=== PATIENT | male | born 1970 | race Hispanic/Latino ===

== ENCOUNTER 2018-06-29 17:02 | Inpatient (IN) | payer MEDICAID, OTHER ==
[2018-06-29 17:24] VITALS: BMI 45.1
[2018-06-29] MEDS ORDERED: Albuterol 0.083% Inhal Sol (2.5 mg/3 mL) UD IH STA (18:22)
--- NOTE | 2018-06-29 18:45 | ED PDOC ---
Arrival/HPI - General Chief Complaint: Flu-like Symptoms Time Seen by Provider: 06/29/18 17:06 Historian: Patient - History of Present Illness Narrative History of Present Illness (Text): 06/29/18 18:36 47yr old male presents today with 4 day history of cough, nasal congestion, sore throat, bodyaches and fevers. pt c/o a mostly dry cough with occasional mucus production. pt c/o rib pain and back pain only with coughing. no cp or sob. pt denies dizziness or weakness. no vomiting or diarrhea. c/o subjective fevers. no abdominal pain. no other complaints. no sick contacts. pt states he thinks he has the flu. Time/Duration: Other ( 4 days) Symptom Onset: Gradual Symptom Course: Worsening Quality: Aching Severity Level: 4 Past Medical History - Provider Review Nursing Documentation Reviewed: Yes - Travel History Have you recently traveled outside [place] w/in the past 3 mons?: No - Infectious Disease Hx of Infectious Diseases: None - Tetanus Immunization Tetanus Immunization: Unknown - Past Medical History Past Medical History: No Previous - Psychiatric Hx Depression: No Hx Emotional Abuse: No Hx Physical Abuse: No Hx Substance Use: No - Past Surgical History Past Surgical History: No Previous - Suicidal Assessment Feels Threatened In Home Enviroment: No Family/Social History - Physician Review Nursing Documentation Reviewed: Yes Family/Social History: Unknown Family HX Smoking Status: Never Smoked Hx Alcohol Use: Yes Frequency of alcohol use: Socially Hx Substance Use: No Hx Substance Use Treatment: No Allergies/Home Meds Allergies/Adverse Reactions: Allergies No Known Allergies Allergy (Verified 10/02/14 12:29) Home Medications: Home Meds Medication Instructions Recorded Confirmed No Known Home Med 10/02/14 10/02/14 Review of Systems - Review of Systems Constitutional: Fatigue, Fevers ENT: Sore Throat, Sinus Congestion Respiratory: Cough. absent: SOB Cardiovascular: absent: Chest Pain, Palpitations Gastrointestinal: absent: Abdominal Pain, Diarrhea, Nausea, Vomiting Genitourinary Male: absent: Dysuria, Frequency, Hematuria Musculoskeletal: Back Pain Skin: absent: Rash, Pruritis Neurological: Headache. absent: Dizziness Psychiatric: absent: Suicidal Ideation Physical Exam Vital Signs Reviewed: Yes Vital Signs Temp Pulse Resp BP Pulse Ox 06/29/18 17:02 98.4 F 86 22 151/106 H 95 Temperature: Afebrile Blood Pressure: Hypertensive Pulse: Regular Respiratory Rate: Normal Appearance: Positive for: Well-Appearing, Non-Toxic, Comfortable Pain Distress: None Mental Status: Positive for: Alert and Oriented X 3 - Systems Exam Head: Present: Atraumatic Pupils: Present: PERRL Extroacular Muscles: Present: EOMI Conjunctiva: Present: Normal Ears: Present: Normal, NORMAL TM Mouth: Present: Moist Mucous Membranes. No: Drooling, Trismus Pharnyx: Present: Normal. No: ERYTHEMA, EXUDATE, TONSILS ENLARGED Nose (External): Present: Atraumatic Nose (Internal): Present: Normal Inspection Neck: Present: Normal Range of Motion, Trachea Midline Respiratory/Chest: Present: Clear to Auscultation, Good Air Exchange, Rhonchi. No: Respiratory Distress, Accessory Muscle Use, Wheezes Cardiovascular: Present: Regular Rate and Rhythm Abdomen: No: Tenderness, Rebound, Guarding Neurological: Present: GCS=15 Skin: Present: Warm, Dry, Normal Color. No: Rashes Psychiatric: Present: Alert, Oriented x 3 Medical Decision Making ED Course and Treatment: 06/29/18 18:47 47yr old male with 4 day history of flu like symptoms. cbc: wnl cmp: glucose; 300 BNP: wnl cxr: + right lower lobe infiltrate. EKG: sinus rhythm with PAC at 86b/m no st elevations. normal axis. rapid flu: negative pt reassessment; after albuterol pt feeling slightly better; still hypoxic at 91% on room air. duoneb added. blood cultures pending. pt started on Rocephin and zithromax IV. pt reassessment: pt feeling better; remains slightly hypoxic at 90% on room air; placed on 2L nasal canula. discussed all results with patient in depth; case discussed with dr. casillas; accepts observational status admission to med/surg for PNA with new onset diabetes all aspects of this case were discussed the attending of record. impression: pneumonia, hypoxia, hyperglycemia admit observational status to med/surg Reassessment Condition: Re-examined, Improving,but remains with symptoms - RAD Interpretation Radiology Orders: 06/29/18 18:21 CHEST PORTABLE [RAD] Stat - Medication Orders Current Medication Orders: Discontinued Medications Acetaminophen (Tylenol 325mg Tab) 975 mg PO STAT STA Stop: 06/29/18 18:24 Albuterol Sulfate (Albuterol 0.083% Inhal [place] (2.5 Mg/3 Ml) Ud) 2.5 mg IH STAT STA Stop: 06/29/18 18:23 Disposition/Present on Arrival - Present on Arrival Any Indicators Present on Arrival: No History of DVT/PE: No History of Uncontrolled Diabetes: No Urinary Catheter: No History of Decub. Ulcer: No History Surgical Site Infection Following: None - Disposition Have Diagnosis and Disposition been Completed?: Yes Diagnosis: Pneumonia, Hyperglycemia Disposition: HOSPITALIZED Disposition Time: 19:50 Patient Plan: Observation Condition: FAIR Referrals: PCP,NO [Primary Care Provider] - Follow up with primary Forms: [employer] [facility] (Portuguese)
[2018-06-29 19:09] LABS: BASO # 0.03 K/mm3 (0.0-2.0); BASO % 0.4 % (0.0-3.0); EOS # 0.2 (0.0-0.7); EOS % 2.2 % (1.5-5.0); GRAN # 4.35 (1.4-6.5); GRAN % 60.9 % (50.0-68.0); HEMOGLOBIN 17.1 g/dL (14.0-18.0); LYMPH # 1.9 (1.2-3.4); LYMPH % 27.1 % (22.0-35.0); MEAN CELL VOLUME 95.1 fl (80.0-105.0); MEAN CORPUSCULAR HEMOGLOBIN 31.3 pg (25.0-35.0); MEAN CORPUSCULAR HGB CONC 32.9 g/dl (31.0-37.0); MEAN PLATELET VOLUME 10.9 fl (7.0-11.0); MONO # 0.7 (0.1-0.6); MONO % 9.4 % (1.0-6.0); RBC 5.47 10^6/uL (3.5-6.1); RED CELL DISTRIBUTION WIDTH 13.2 % (11.5-14.5); WHITE BLOOD COUNT 7.2 10^3/uL (4.5-11.0)
[2018-06-29 19:22] LABS: ALB/GLOB RATIO 1.2 (1.1-1.8); ALT/SGPT 81 U/L (7-56); AST/SGOT 46 U/L (17-59); BLOOD UREA NITROGEN 12 mg/dL (7-21); CALCIUM 9.2 mg/dL (8.4-10.5); GFR NON-AFRICAN AMERICAN > 60
[2018-06-29 19:24] LABS: B-TYPE NATRIURETIC PEPTIDE 411 pg/mL (0-450)
[2018-06-29] MEDS ORDERED: Albuterol-Ipratrop 3 mg / 0.5 (3 ml) UD IH STA (19:26)
[2018-06-29] MEDS ORDERED: cefTRIAXone 1 gm 1 GM/100 ML BAG IVPB STA (19:49)
[2018-06-29] MEDS ORDERED: Azithromycin 500MG/NS 250ml 500 MG/250 ML BAG IVPB STA (19:49)
--- NOTE | 2018-06-29 21:30 | CP.PCM.HP ---
<Adriel Wisdom - Last Filed: 06/30/18 01:57> History of Present Illness - History of Present Illness History of Present Illness: Adriel Wisdom, PGY-1, Internal Medicine History and Physical for Dr. Aguirre 47 year old male with past medical history of gastric ulcers presents with 4 day history of generalized body aches, shortness of breath, productive cough with green sputum, chest ache while coughing, mild headache, and subjective fevers for the first 2 days of symptoms. Patient reports taking alkaseltzer, cough drops, and dextrometorphan for relief of symptoms, which did not relieve his symptoms. Patient reports shortness of breath was not exacerbated or relieved with position changes or at night time. Patient also reports snoring at night and getting inadequate sleep most nights. He was supposed to get polysomnography last year but was not able to make his appointment. He works at a restaurant in [place] and was afraid he had "flu-like symptoms" and took an uber to the hospital. Patient denies change in vision, change in hearing, heart palpitations, nausea, vomiting, diarrhea, dysuria, hematuria, numbness/tingling. 12-point ROS was negative except for what was mentioned above. PMH: as mentioned above PSH: denies FMHx: Mother: CHF, renal failure, from metastatic lung cancer/ Father: from metastatic lung cancer SHx: denies smoking, drinks 6 pack of beer in 2 months, denies recreational drug use Allergies: NKDA PMD: denies Pharmacy: [facility] Rx: Over the counter prilosec Present on Admission - Present on Admission Any Indicators Present on Admission: No Review of Systems - Constitutional Constitutional: Fever (subjective), Snoring. absent: Chills, Night Sweats - EENT Eyes: absent: Blurred Vision Ears: absent: Decreased Hearing - Cardiovascular Cardiovascular: Chest Pain (aches when coughs), Dyspnea. absent: Irregular Heart Rhythm, Pain Radiating to Arm/Neck/Jaw, Lightheadedness, Palpitations - Respiratory Respiratory: Dyspnea, Wheezing, Snoring, Excessive Mucous Production. absent: Hemoptysis, Dyspnea on Exertion - Gastrointestinal Gastrointestinal: absent: Abdominal Pain, Constipation, Diarrhea, Nausea, V omiting - Genitourinary Genitourinary: absent: Dysuria, Hematuria - Musculoskeletal Musculoskeletal: absent: Arthralgias - Neurological Neurological: Headaches. absent: Confusion, Dizziness Past Patient History - Infectious Disease Hx of Infectious Diseases: None - Tetanus Immunizations Tetanus Immunization: Unknown - Past Social History Smoking Status: Never Smoked - PSYCHIATRIC Hx Depression: No Hx Emotional Abuse: No Hx Physical Abuse: No Hx Substance Use: No Meds Allergies/Adverse Reactions: Allergies Allergy/AdvReac Type Severity Reaction Status Date / Time No Known Allergies Allergy Verified 10/02/14 12:29 Physical Exam - Constitutional Appears: Well, Non-toxic, No Acute Distress - Head Exam Head Exam: ATRAUMATIC, NORMAL INSPECTION, NORMOCEPHALIC - Eye Exam Eye Exam: EOMI Pupil Exam: PERRL - ENT Exam ENT Exam: Mucous Membranes Moist - Respiratory Exam Respiratory Exam: Wheezes (diffuse but heard more clearly at bilateral bases), NORMAL BREATHING PATTERN. absent: Accessory Muscle Use, Decreased Breath So unds, Respiratory Distress - Cardiovascular Exam Cardiovascular Exam: REGULAR RHYTHM, RRR - GI/Abdominal Exam GI & Abdominal Exam: Normal Bowel Sounds, Soft. absent: Tenderness Additional comments: obese - Extremities Exam Extremities exam: Positive for: full ROM - Neurological Exam Neurological exam: Alert, CN II-XII Intact, Oriented x3 Results - Vital Signs Recent Vital Signs: Last Vital Signs Temp 98.2 F 06/29/18 18:46 Pulse 88 06/29/18 19:47 Resp 18 06/29/18 19:47 BP 148/96 H 06/29/18 19:47 Pulse Ox 91 L 06/29/18 19:47 - Labs Result Diagrams: 06/29/18 18:55 06/29/18 18:55 Labs: Laboratory Results - last 24 hr 06/29/18 06/29/18 06/29/18 18:44 18:55 18:55 WBC 7.2 RBC 5.47 Hgb 17.1 Hct 52.0 MCV 95.1 MCH 31.3 MCHC 32.9 RDW 13.2 Plt Count 150 MPV 10.9 Gran % 60.9 Lymph % (Auto) 27.1 [place] % (Auto) 9.4 H Eos % (Auto) 2.2 Baso % (Auto) 0.4 Gran # 4.35 Lymph # (Auto) 1.9 [place] # (Auto) 0.7 H Eos # (Auto) 0.2 Baso # (Auto) 0.03 Sodium 139 Potassium 4.2 Chloride 100 Carbon Dioxide 32 Anion Gap 11 BUN 12 Creatinine 0.7 L Est GFR ( Amer) > 60 Est GFR (Non-Af Amer) > 60 Random Glucose 300 H Calcium 9.2 Total Bilirubin 0.6 AST 46 ALT 81 H Alkaline Phosphatase 94 NT-Pro-B Natriuret Pep 411 Total Protein 7.2 Albumin 4.0 Globulin 3.2 Albumin/Globulin Ratio 1.2 Influenza Typ A,B (EIA) Negative for flu a/b Assessment & Plan - Assessment and Plan (Free Text) Assessment: 47 year old male with past medical history of gastric ulcers presents with 4 day history of generalized body aches, shortness of breath, productive cough with green sputum, chest ache while coughing, mild headache, and subjective fevers for the first 2 days of symptoms. Influeza antibody was negative. CXR shows right lower lobe infiltrate Plan: Shortness of breath and productive cough 2/2 to Community Acquired Pneumonia vs. Common Cold vs. doubt Influenza -Chest X ray: right lower lobe infiltrate as read by me -Influenza negative -Legionella urine antigen, Mycoplasma IgM, blood culture, urine culture ordered -Ceftriaxone and Azithromycin day 1 of 5 -Duonebs PRN for shortness of breath Hyperglycemia -Random glucose: 300 -No diagnosis of diabetes in the past -Accucheks ACHS -HgbA1c ordered -Low dose SSI Isolated Elevated ALT -Continue to monitor GI prophylaxis: protonix 40 mg daily DVT prophylaxis: lovenox 40 mg daily - Date & Time Date: 06/30/18 Time: 01:57 <Salomon Aguirre - Last Filed: 06/30/18 05:44> Results - Vital Signs Recent Vital Signs: Last Vital Signs Temp 98.2 F 06/29/18 18:46 Pulse 88 06/29/18 19:47 Resp 18 06/29/18 19:47 BP 148/96 H 06/29/18 19:47 Pulse Ox 91 L 06/29/18 19:47 - Labs Result Diagrams: 06/29/18 18:55 06/29/18 18:55 Labs: Laboratory Results - last 24 hr 06/29/18 06/29/18 06/29/18 18:44 18:55 18:55 WBC 7.2 RBC 5.47 Hgb 17.1 Hct 52.0 MCV 95.1 MCH 31.3 MCHC 32.9 RDW 13.2 Plt Count 150 MPV 10.9 Gran % 60.9 Lymph % (Auto) 27.1 [place] % (Auto) 9.4 H Eos % (Auto) 2.2 Baso % (Auto) 0.4 Gran # 4.35 Lymph # (Auto) 1.9 [place] # (Auto) 0.7 H Eos # (Auto) 0.2 Baso # (Auto) 0.03 Sodium 139 Potassium 4.2 Chloride 100 Carbon Dioxide 32 Anion Gap 11 BUN 12 Creatinine 0.7 L Est GFR ( Amer) > 60 Est GFR (Non-Af Amer) > 60 Random Glucose 300 H Calcium 9.2 Total Bilirubin 0.6 AST 46 ALT 81 H Alkaline Phosphatase 94 NT-Pro-B Natriuret Pep 411 Total Protein 7.2 Albumin 4.0 Globulin 3.2 Albumin/Globulin Ratio 1.2 Influenza Typ A,B (EIA) Negative for flu a/b Attending/Attestation - Attestation I have personally seen and examined this patient.: Yes I have fully participated in the care of the patient.: Yes I have reviewed all pertinent clinical information: Yes Notes (Text): 06/29/18 22:05 Patient was seen in the ER when he was in bed # 13. Medical record was reviewed . Agree with history, physical examination, assessment and plan with some exclusions and inclusions. 47 year old male with CC: Cough,congestion,sorethroat, fever, bodyachesx 4days. Chill 4 days ago. Diarrhoea x 6 , watery, no blood , no mucus , 4 days ago. Hypoxia. Hyperglycemia.-300 CXR-PNA.RML/RLL EKG-NSR,PAC. PMH: Obesity-45.2Kg. Social alcohol use. 100 lb weigh gain in 8 years. History of elevation of intraocular pressure in left eye 3 years ago, he was told that pressure is normal now. Was on Prilosec for stomach in the past. Has seen psychiatrist in the past, denies anxiety or depression,suicida ideation. Family history of lung cancer(mother),renal failure(mother),brain tumor(father). On PE: Obese,not in acute distress,diminished breath sound on right base posteriorly.
[2018-06-29] MEDS ORDERED: Sodium Chloride 0.9% 1,000 ML IV STA (21:53)
[2018-06-29] MEDS: Insulin Reg-LOW-Coverage SC SCH (22:26)
[2018-06-29 22:36] LABS: HDL CHOLESTEROL 29 mg/dL (29-60)
[2018-06-29 22:47] LABS: LDL CHOLESTEROL 127 mg/dL (0-129)
[2018-06-29] MEDS ORDERED: Influenza Vaccine 60 mcg/0.5 mL SYR (4YR UP) IM ONE (23:08)
[2018-06-29] MEDS ORDERED: Pneumococcal 23-Valent Vaccine IM ONE (23:08)
[2018-06-29] MEDS ORDERED: Albuterol-Ipratrop 3 mg / 0.5 (3 ml) UD ONE (23:19)
[2018-06-29] MEDS ORDERED: Naloxone 0.4 mg/ml Inj (Adult) ONE (23:22)
[2018-06-30] MEDS: Albuterol-Ipratrop 3 mg / 0.5 (3 ml) UD IH PRN (02:30)
[2018-06-30] MEDS: guaiFENesin 100 mg/5 ml Syrup UD PO PRN ×2 (02:32→17:42)
[2018-06-30 04:14] VITALS: RESP 20
[2018-06-30 06:43] LABS: BASO # 0.02 K/mm3 (0.0-2.0); BASO % 0.3 % (0.0-3.0); EOS # 0.2 (0.0-0.7); EOS % 2.2 % (1.5-5.0); GRAN # 4.49 (1.4-6.5); GRAN % 66.9 % (50.0-68.0); HEMOGLOBIN 16.2 g/dL (14.0-18.0); LYMPH # 1.6 (1.2-3.4); LYMPH % 23.8 % (22.0-35.0); MEAN CELL VOLUME 96.8 fl (80.0-105.0); MEAN CORPUSCULAR HEMOGLOBIN 30.6 pg (25.0-35.0); MEAN CORPUSCULAR HGB CONC 31.6 g/dl (31.0-37.0); MEAN PLATELET VOLUME 10.7 fl (7.0-11.0); MONO # 0.5 (0.1-0.6); MONO % 6.8 % (1.0-6.0); RBC 5.29 10^6/uL (3.5-6.1); RED CELL DISTRIBUTION WIDTH 13.4 % (11.5-14.5); WHITE BLOOD COUNT 6.7 10^3/uL (4.5-11.0)
[2018-06-30 07:00] LABS: ALB/GLOB RATIO 1.2 (1.1-1.8); ALBUMIN 3.8 g/dL (3.0-4.8); ALT/SGPT 83 U/L (7-56); AST/SGOT 49 U/L (17-59); BLOOD UREA NITROGEN 14 mg/dL (7-21); CALCIUM 8.5 mg/dL (8.4-10.5); GFR NON-AFRICAN AMERICAN > 60
--- NOTE | 2018-06-30 08:37 | RAD ---
Date of service: 06/29/2018 HISTORY: cough/fever COMPARISON: No prior. FINDINGS: LUNGS: The lungs are well inflated. There is mild pulmonary venous congestion PLEURA: No pleural effusions or pneumothorax. CARDIOVASCULAR: Mild cardiomegaly. No aortic atherosclerotic calcification present. OSSEOUS STRUCTURES: Within normal limits for the patient's age. VISUALIZED UPPER ABDOMEN: Normal. OTHER FINDINGS: None. IMPRESSION: No active pulmonary disease.
[2018-06-30] MEDS: Insulin Reg-LOW-Coverage SC SCH ×4 (08:41→21:53)
--- NOTE | 2018-06-30 09:21 | CARD ---
APPROVED REPORT Date of service: 06/29/2018 EKG Measurement Heart [id number] <Conclusion> Sinus rhythm with premature atrial complexes with aberrant conduction Possible Old Inf.Wall ND. Possible Old Ant Wall ND/Clockwise Rotation?
[2018-06-30] MEDS: cefTRIAXone 1 gm 1 GM/100 ML BAG IVPB SCH (09:56)
[2018-06-30] MEDS: Enoxaparin 40 mg Syringe SC SCH (09:57)
[2018-06-30] MEDS: Azithromycin 250 MG in Sodium Chloride 0.9% 250 ML IVPB SCH (09:59)
--- NOTE | 2018-06-30 13:54 | CT ---
Date of service: 06/30/2018 PROCEDURE: CT Chest without contrast HISTORY: R/O PNEUMONIA COMPARISON: None available. TECHNIQUE: Contiguous axial images were obtained through the chest without intravenous contrast enhancement. Sagittal and coronal reconstructions were performed. Radiation dose: Total exam DLP = 1224.66 mGy-cm. This CT exam was performed using one or more of the following dose reduction techniques: Automated exposure control, adjustment of the mA and/or kV according to patient size, and/or use of iterative reconstruction technique. FINDINGS: LUNGS: There is an infiltrate in the left lower lobe superior segment consistent with pneumonia. Air bronchograms are seen. A minimal nodular appearing infiltrate is seen in the right lower lobe MEDIASTINUM: Unremarkable thoracic aorta. No aneurysm. Normal sized heart. Main pulmonary artery unremarkable. No vascular congestion. No lymphadenopathy. No aortic atherosclerotic calcification. PLEURA: No pleural fluid. No pneumothorax. BONES: No fracture. No destructive lesion. UPPER ABDOMEN: Grossly unremarkable. OTHER FINDINGS: None. IMPRESSION: There is an infiltrate in the left lower lobe superior segment consistent with pneumonia. Air bronchograms are seen. A minimal nodular appearing infiltrate is seen in the right lower lobe
[2018-07-01] MEDS: guaiFENesin 100 mg/5 ml Syrup UD PO PRN ×2 (01:03→21:51)
[2018-07-01] MEDS: Albuterol-Ipratrop 3 mg / 0.5 (3 ml) UD IH PRN ×2 (01:25→08:38)
[2018-07-01 06:30] LABS: BASO # 0.03 K/mm3 (0.0-2.0); BASO % 0.4 % (0.0-3.0); EOS # 0.2 (0.0-0.7); EOS % 3.1 % (1.5-5.0); GRAN # 5.13 (1.4-6.5); GRAN % 65.3 % (50.0-68.0); HEMOGLOBIN 15.8 g/dL (14.0-18.0); MEAN CORPUSCULAR HEMOGLOBIN 30.3 pg (25.0-35.0); MEAN CORPUSCULAR HGB CONC 31.6 g/dl (31.0-37.0); MEAN PLATELET VOLUME 10.9 fl (7.0-11.0); MONO # 0.4 (0.1-0.6); MONO % 5.2 % (1.0-6.0); RBC 5.21 10^6/uL (3.5-6.1); RED CELL DISTRIBUTION WIDTH 13.1 % (11.5-14.5); WHITE BLOOD COUNT 7.9 10^3/uL (4.5-11.0)
[2018-07-01 06:50] LABS: ALB/GLOB RATIO 1.2 (1.1-1.8); ALBUMIN 3.7 g/dL (3.0-4.8); ALT/SGPT 84 U/L (7-56); AST/SGOT 51 U/L (17-59); BLOOD UREA NITROGEN 13 mg/dL (7-21); CALCIUM 8.8 mg/dL (8.4-10.5); GFR NON-AFRICAN AMERICAN > 60
[2018-07-01] MEDS: Insulin Reg-LOW-Coverage SC SCH ×4 (08:13→21:18)
[2018-07-01] MEDS: Pantoprazole 40 mg EC Tab PO SCH (08:16)
[2018-07-01] MEDS: Enoxaparin 40 mg Syringe SC SCH (09:14)
[2018-07-01] MEDS: cefTRIAXone 1 gm 1 GM/100 ML BAG IVPB SCH (09:16)
[2018-07-01] MEDS: Azithromycin 250 MG in Sodium Chloride 0.9% 250 ML IVPB SCH (10:21)
--- NOTE | 2018-07-01 12:47 | CP.PCM.PN ---
<Thiago Navarro - Last Filed: 07/01/18 13:02> Subjective - Date & Time of Evaluation Date of Evaluation: 07/01/18 Time of Evaluation: 08:00 - Subjective Subjective: Pt seen and examined this morning. Pt has no new complaints. States he feels like his symptoms are improving. Objective - Vital Signs/Intake and Output Vital Signs (last 24 hours): Temp Pulse Resp BP Pulse Ox 98.2 F 85 20 121/83 94 L 07/01/18 08:18 07/01/18 08:18 07/01/18 08:18 07/01/18 08:18 07/01/18 08:18 Intake and Output: 07/01/18 07/01/18 06:59 18:59 Intake Total 1090 Output Total 700 Balance 390 - Medications Medications: Current Medications Acetaminophen (Tylenol 325mg Tab) 650 mg PO Q6H PRN PRN Reason: Fever >100.4 F Last Admin: 06/30/18 17:40 Dose: 650 mg Albuterol/Ipratropium (Duoneb 3 Mg/0.5 Mg (3 Ml) Ud) 3 ml IH Q2H PRN PRN Reason: Shortness of Breath Last Admin: 07/01/18 08:38 Dose: 3 ml Azithromycin (Zithromax) 250 mg PO DAILY [facility] Enoxaparin Sodium (Lovenox) 40 mg SC DAILY [facility]; Protocol Last Admin: 07/01/18 09:14 Dose: 40 mg Guaifenesin (Robitussin) 100 mg PO Q4H PRN PRN Reason: Cough Last Admin: 07/01/18 01:03 Dose: 100 mg Ceftriaxone Sodium (Rocephin 1 Gram Ivpb) 1 gm in 100 mls @ 100 mls/hr IVPB DAILY [facility]; Protocol Last Admin: 07/01/18 09:16 Dose: 100 mls/hr Insulin Human Regular (Humulin R Low) 0 units SC ACHS [facility]; Protocol Last Admin: 07/01/18 12:05 Dose: 3 units Metformin HCl (Glucophage) 500 mg PO BID [facility] Last Admin: 07/01/18 09:13 Dose: 500 mg Pantoprazole Sodium (Protonix Ec Tab) 40 mg PO ACB [facility] Last Admin: 07/01/18 08:16 Dose: 40 mg - Labs Labs: 07/01/18 05:44 07/01/18 05:44 - Head Exam Head Exam: ATRAUMATIC, NORMOCEPHALIC - Eye Exam Eye Exam: EOMI - ENT Exam ENT Exam: Mucous Membranes Moist - Neck Exam Neck Exam: Full ROM - Respiratory Exam Respiratory Exam: Rhonchi, NORMAL BREATHING PATTERN. absent: Accessory Muscle Use, Respiratory Distress - Cardiovascular Exam Cardiovascular Exam: +S1, +S2. absent: Diastolic murmur, Murmur - GI/Abdominal Exam GI & Abdominal Exam: Soft, Normal Bowel Sounds. absent: Tenderness - Extremities Exam Extremities Exam: Full ROM. absent: Calf Tenderness, Tenderness - Neurological Exam Neurological Exam: Alert, Awake, Oriented x3 - Psychiatric Exam Psychiatric exam: Normal Affect, Normal Mood - Skin Skin Exam: Dry, Normal Color, Warm Assessment and Plan - Assessment and Plan (Free Text) Assessment: Pt is a 47 yo male with a PMH of gastric ulcers who presented with generalized body aches, SOB, productive cough with green sputum, found to have CAP. Plan: Community Acquired Pneumonia - CT chest shows infiltrate in the left lower lobe superior segment consistent with PNA - duonebs PRN for SOB - ceftriaxone for 5 total days - azithromycin for 5 total days - blood cultures NGTD Diabetes Mellitus - newly diagnosed - HA1C 11.6 - accuchecks ACHS - SSI low dose - DM education Ppx - protonix - lovenox Pt seen, examined, assessment and plan discussed with Dr Marie Navarro PGY1, Internal Medicine Resident <Marie Veliz R - Last Filed: 07/04/18 16:13> Objective - Vital Signs/Intake and Output Vital Signs (last 24 hours): Temp Pulse Resp BP Pulse Ox 98.2 F 87 20 140/84 95 07/02/18 06:00 07/02/18 06:00 07/02/18 06:00 07/02/18 06:00 07/02/18 06:00 - Labs Labs: 07/02/18 06:00 07/02/18 06:00 Attending/Attestation - Attestation I have personally seen and examined this patient.: Yes I have fully participated in the care of the patient.: Yes I have reviewed all pertinent clinical information, including history, physical exam and plan: Yes Notes (Text): Patient seen and examined by me with resident at 10:15AM on 07/01/18. Case including HPI, physical exam, and assessment and plan discussed with resident. Agree with above with following additions/corrections. Patient is a 47 year old male with past medical history significant for gastric ulcers that presented to the emergency room with a 4 day history of generalized body aches, shortness of breath, productive cough, chest pain with coughing, and subjective fevers. Patient states he is feeling a little better today. States he is still coughing but that has improved. Patient states that body aches and shortness of breath have improved. Patient states he did not know that he is diabetic but he is going to diet and exercise at home. Patient states he does not want to start insulin and wants try oral agents first. Patient denies chest pain or palpitations. No headaches or dizziness. No lightheadedness. No change in vision. No dysuria. No diarrhea or constipation. No fevers or chills. Physical exam: General: Awake and alert, lying in bed in no acute distress. HEENT: Normocephalic, atraumatic, Extraocular muscles intact, pupils equal and reactive, no scleral icterus. Oropharynx is pink and moist. No pharyngeal erythema or exudate appreciated. Neck is supple. Cardiovascular: Normal rhythm. Normal S1 and S2. No murmurs, rubs, or gallops appreciated. Pulmonary: Normal respiratory effort. Decreased breath sounds. No rhonchi, rales, or wheezing appreciated. Gastrointestinal: Soft. Nondistended No tenderness. Positive bowel sounds all 4 quadrants. No guarding. Musculoskeletal:Moves all extremities. No calf tenderness. No edema appreciated. No CVA tenderness Central nervous system: AAO x3, CN2-12 grossly intact. Dermatologic: Skin warm and dry. Assessment and plan. Patient is a 47 year old male with past medical history significant for gastric ulcers that presented to the emergency room with a 4 day history of generalized body aches, shortness of breath, productive cough, chest pain with coughing, and subjective fevers. 1. Community acquired pneumonia. Chest CT per radiologist showed an infiltrate in the left lower lobe superior segment consistent with pneumonia, air bronchograms seen, minimal nodular appearing infiltrate is seen in the right lower lobe. Influenza negative. Urine for legionella negative. Mycoplasma negative, strep pneumoniae negative. Continue Rocephin and Zithromax. Continue Robitussin as needed. No leukocytosis, afebrile. 2. Shortness of breath. Hypoxemia. Secondary to community acquired pneumonia. Continue O2 via nasal cannula as needed. Continue nebulizer treatments as needed. 3. Newly diagnosed DM2. Patient counseled at length on diet and exercise. Hgb A1C 11.5. Continue insulin sliding scale. Monitor accuchecks. Patient does not want to be started on insulin. Will discharge on metformin with primary care follow up. 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 4. Morbid obesity. Likely sleep apnea. Patient to reschedule sleep apnea testing. Patient counseled on diet and exercise. Case was discussed in detail with patient regarding current diagnosis and treatment plan. All questions answered.
[2018-07-01 16:37] VITALS: O2SAT 95
[2018-07-02] MEDS: Pantoprazole 40 mg EC Tab PO SCH (06:30)
[2018-07-02 07:07] LABS: ALB/GLOB RATIO 1.2 (1.1-1.8); ALBUMIN 3.8 g/dL (3.0-4.8); ALT/SGPT 94 U/L (7-56); AST/SGOT 63 U/L (17-59); BLOOD UREA NITROGEN 13 mg/dL (7-21); CALCIUM 9.1 mg/dL (8.4-10.5); GFR NON-AFRICAN AMERICAN > 60
[2018-07-02 07:19] LABS: BASO # 0.03 K/mm3 (0.0-2.0); BASO % 0.5 % (0.0-3.0); EOS # 0.2 (0.0-0.7); EOS % 2.7 % (1.5-5.0); GRAN # 4.16 (1.4-6.5); GRAN % 62.4 % (50.0-68.0); HEMOGLOBIN 16.4 g/dL (14.0-18.0); LYMPH # 1.9 (1.2-3.4); LYMPH % 29.1 % (22.0-35.0); MEAN CELL VOLUME 94.9 fl (80.0-105.0); MEAN CORPUSCULAR HEMOGLOBIN 30.9 pg (25.0-35.0); MEAN CORPUSCULAR HGB CONC 32.5 g/dl (31.0-37.0); MEAN PLATELET VOLUME 10.9 fl (7.0-11.0); MONO # 0.4 (0.1-0.6); MONO % 5.3 % (1.0-6.0); RBC 5.31 10^6/uL (3.5-6.1); RED CELL DISTRIBUTION WIDTH 13.1 % (11.5-14.5); WHITE BLOOD COUNT 6.7 10^3/uL (4.5-11.0)
[2018-07-02 08:10] VITALS: BP 140/84; PULSE 87; TEMP 98.2
[2018-07-02] MEDS: Insulin Reg-LOW-Coverage SC SCH ×2 (08:26→12:10)
[2018-07-02] MEDS ORDERED: Cefpodoxime (Vantin) 200 mg Tab PO SCH (10:00)
[2018-07-02] MEDS: Enoxaparin 40 mg Syringe SC SCH (10:17)
[2018-07-02 11:42] LABS: ARTERIAL BLOOD GAS HCO3 31.1 mmol/L (21-28); ARTERIAL BLOOD GAS HEMOGLOBIN 16.1 g/dL (11.7-17.4); ARTERIAL BLOOD GAS O2 CONTENT 21.7 ML/dl (15-23); ARTERIAL BLOOD GAS O2 SAT 98.5 % (95-98); ARTERIAL BLOOD GAS PCO2 48 mm/Hg (35-45); ARTERIAL BLOOD GAS PH 7.42 (7.35-7.45); ARTERIAL BLOOD GAS TCO2 32.6 mmol.L (22-28)
--- NOTE | 2018-07-02 12:42 | CP.PCM.DIS ---
Provider - Provider Date of Admission: 07/01/18 12:21 Attending physician: Marie Veliz DO Primary care physician: [facility] PRIMARY CARE PROVIDER Consults: 07/01/18 07:16 Diabetic Education Referral Routine Comment: Physician Instructions: Reason For Exam: new diabetic. [email or web address] import/export administrator Time Spent in preparation of Discharge (in minutes): 45 Diagnosis - Discharge Diagnosis (1) Pneumonia Status: Acute Priority: High (2) Diabetes mellitus Status: Acute Priority: High Hospital Course - Lab Results Lab Results: Micro Results 06/29/18 19:00 Blood Blood Culture - Preliminary NO GROWTH AFTER 48 HOURS 06/29/18 18:30 Blood Blood Culture - Preliminary NO GROWTH AFTER 48 HOURS 06/30/18 10:30 Urine Urine Culture - Final No Growth (<1,000 CFU/ML) Most Recent Lab Values WBC 6.7 10^3/uL (4.5-11.0) 07/02/18 06:00 RBC 5.31 10^6/uL (3.5-6.1) 07/02/18 06:00 Hgb 16.4 g/dL (14.0-18.0) 07/02/18 06:00 Hct 50.4 % (42.0-52.0) 07/02/18 06:00 MCV 94.9 fl (80.0-105.0) 07/02/18 06:00 MCH 30.9 pg (25.0-35.0) 07/02/18 06:00 MCHC 32.5 g/dl (31.0-37.0) 07/02/18 06:00 RDW 13.1 % (11.5-14.5) 07/02/18 06:00 Plt Count 165 10^3/uL (120.0-450.0) 07/02/18 06:00 MPV 10.9 fl (7.0-11.0) 07/02/18 06:00 Gran % 62.4 % (50.0-68.0) 07/02/18 06:00 Lymph % (Auto) 29.1 % (22.0-35.0) 07/02/18 06:00 [place] % (Auto) 5.3 % (1.0-6.0) 07/02/18 06:00 Eos % (Auto) 2.7 % (1.5-5.0) 07/02/18 06:00 Baso % (Auto) 0.5 % (0.0-3.0) 07/02/18 06:00 Gran # 4.16 (1.4-6.5) 07/02/18 06:00 Lymph # (Auto) 1.9 (1.2-3.4) 07/02/18 06:00 [place] # (Auto) 0.4 (0.1-0.6) 07/02/18 06:00 Eos # (Auto) 0.2 (0.0-0.7) 07/02/18 06:00 Baso # (Auto) 0.03 K/mm3 (0.0-2.0) 07/02/18 06:00 pCO2 48 mm/Hg (35-45) H 07/02/18 11:30 pO2 90.0 mm/Hg (80-100) 07/02/18 11:30 HCO3 31.1 mmol/L (21-28) H 07/02/18 11:30 ABG pH 7.42 (7.35-7.45) 07/02/18 11:30 ABG Total CO2 32.6 mmol.L (22-28) H 07/02/18 11:30 ABG O2 Saturation 98.5 % (95-98) H 07/02/18 11:30 ABG O2 Content 21.7 ML/dl (15-23) 07/02/18 11:30 ABG Base Excess 5.4 mmol/L (-2.0-3.0) H 07/02/18 11:30 ABG Hemoglobin 16.1 g/dL (11.7-17.4) 07/02/18 11:30 ABG Carboxyhemoglobin 2.2 % (0.5-1.5) H 07/02/18 11:30 POC ABG HHb (Measured) 1.5 % (0-5) 07/02/18 11:30 ABG Methemoglobin 0.7 % (0.0-3.0) 07/02/18 11:30 ABG O2 Capacity 22.0 mL/dl (16-24) 07/02/18 11:30 Hgb O2 Saturation 95.6 % (95.0-98.0) 07/02/18 11:30 FiO2 32.0 % 07/02/18 11:30 Sodium 139 mmol/L (132-148) 07/02/18 06:00 Potassium 3.7 mmol/L (3.6-5.0) 07/02/18 06:00 Chloride 100 mmol/L (98-107) 07/02/18 06:00 Carbon Dioxide 33 mmol/L (21-33) 07/02/18 06:00 Anion Gap 10 (10-20) 07/02/18 06:00 BUN 13 mg/dL (7-21) 07/02/18 06:00 Creatinine 0.6 mg/dl (0.8-1.5) L 07/02/18 06:00 Est GFR ( Amer) > 60 07/02/18 06:00 Est GFR (Non-Af Amer) > 60 07/02/18 06:00 POC Glucose (mg/dL) 162 mg/dL (65-110) H 07/02/18 11:18 Random Glucose 188 mg/dL (70-110) H 07/02/18 06:00 Hemoglobin A1c 11.5 % (4.2-6.5) H 06/29/18 21:07 Calcium 9.1 mg/dL (8.4-10.5) 07/02/18 06:00 Total Bilirubin 0.5 mg/dL (0.2-1.3) 07/02/18 06:00 AST 63 U/L (17-59) H D 07/02/18 06:00 ALT 94 U/L (7-56) H 07/02/18 06:00 Alkaline Phosphatase 82 U/L (38-126) 07/02/18 06:00 NT-Pro-B Natriuret Pep 411 pg/mL (0-450) 06/29/18 18:55 Total Protein 7.0 g/dL (5.8-8.3) 07/02/18 06:00 Albumin 3.8 g/dL (3.0-4.8) 07/02/18 06:00 Globulin 3.2 gm/dL 07/02/18 06:00 Albumin/Globulin Ratio 1.2 (1.1-1.8) 07/02/18 06:00 Triglycerides 179 mg/dL (35-160) H 06/29/18 21:07 Cholesterol 180 mg/dL (130-200) 06/29/18 21:07 LDL Cholesterol Direct 127 mg/dL (0-129) 06/29/18 21:07 HDL Cholesterol 29 mg/dL (29-60) 06/29/18 21:07 Procalcitonin 0.12 NG/ML (0.19-0.49) L 06/30/18 06:00 Influenza Typ A,B (EIA) Negative for flu a/b (NEGATIVE) 06/29/18 18:44 Ur L.pneumophila Ag Negative (NEGATIVE) 06/30/18 10:30 Mycoplasma pneumon IgM Negative (NEGATIVE) 07/01/18 05:44 - Hospital Course Hospital Course: Upon Arrival 47 year old male with past medical history of gastric ulcers presents with 4 day history of generalized body aches, shortness of breath, productive cough with green sputum, chest ache while coughing, mild headache, and subjective fevers for the first 2 days of symptoms. He works at a restaurant in [place] and w as afraid he had "flu-like symptoms" and took an uber to the hospital. Hospital Admission CT chest showed infiltrate in the left lower lobe superior segment consistent with PNA. Pt was treated with ceftriaxone and azithromycin. Blood cultures showed no growth. During his admission, pt was found to be a diabetic with a HA1C of 11.6. Pt was given diabetic education and started on Metformin 1000BID. Discharge Pt advised to follow up with his primary care physician within 3-5 days. Pt advised to take his metformin, keep a lot of his blood sugars and work to improve his diet and also exercise. Pt was given a prescription for antibiotics, please take with food and complete all antibiotics. Will need to take your evening dose of Vantin (cefpodoxime) tonight. Please start your Azithromycin (Zithromax) tomorrow. Advised to reschedule testing for sleep apnea. If symptoms return or worsen, please go to the nearest emergency department - Date & Time of H&P Date of H&P: 07/02/18 Time of H&P: 10:00 Discharge Exam - Head Exam Head Exam: ATRAUMATIC, NORMOCEPHALIC Discharge Plan - Discharge Medications Prescriptions: Azithromycin [Zithromax] 250 mg PO DAILY #2 tab Blood Sugar Diagnostic [Blood Glucose Test] 1 each MC BID #28 strip Blood-Glucose Meter [Blood Glucose Meter] 1 each MC BID #1 each Cefpodoxime [Vantin] 200 mg PO Q12 #8 tab Lancets [Blood Lancets] 1 each MC BID #28 each MetFORMIN [glucoPHAGE] 1,000 mg PO BID #30 tab - Follow Up Plan Condition: FAIR Disposition: HOME/ ROUTINE Additional Instructions: 1. Please follow up with your primary care physician within 3-5 days 2. You were treated for pneumonia. 3. During your hospital admission, you were found to have diabetes mellitus, and high blood sugar. You will be prescribed a new medication, Metformin to help treat this. Please take 1000mg twice a day, please do not take if you are skip ping meals. Please check your sugars before meals and keep a log. You will need to take this to your primary care doctor. Please diet and exercise. Your Hemoglobin A1C was 11.5. You may need to be started on insulin if does not improve. 4. You are being given a prescription for antibiotics, please take with food and complete all antibiotics. You will need to take your evening dose of Vantin (cefpodoxime) tonight. Please start your Azithromycin (Zithromax) tomorrow. 5. Please make sure to reschedule your testing for sleep apnea 6. If your symptoms return or worsen, please go to the nearest emergency department Referrals: PCP,NO [Primary Care Provider] -
[2018-07-03 02:32] LABS: SOURCE SERUM
== END 2018-07-02 14:47 | disposition home or self-care (01) | DRG 89 ==
LOC: ED 17:02 → ERH 19:52 → 3RNO 22:35 → OBSVTOIN 07-01 12:21
PROVIDERS: ADMIT Hospitalist; ATTEND Hospitalist
PROC: 3E0F7GC Introduction of Other Therapeutic Substance into Respiratory Tract, Via Natural or Artificial Opening (ICD-10-PCS; principal; 2018-07-01)
DX: J18.9 Pneumonia, unspecified organism (principal); E11.65 Type 2 diabetes mellitus with hyperglycemia; R09.02 Hypoxemia; E66.9 Obesity, unspecified; Z68.42 Body mass index [BMI] 45.0-49.9, adult; Z87.11 Personal history of peptic ulcer disease; Z80.1 Family history of malignant neoplasm of trachea, bronchus and lung; Z82.49 Family history of ischemic heart disease and other diseases of the circulatory system; Z84.1 Family history of disorders of kidney and ureter

== ENCOUNTER 2018-10-28 10:52 | Emergency (ER) | payer MEDICAID, OTHER ==
--- NOTE | 2018-10-28 11:00 | ED PDOC ---
Arrival/HPI - General Historian: Patient - History of Present Illness Narrative History of Present Illness (Text): 10/28/18 10:56 48 y/o male, pmh including dm, nkda, c/o rt. sided neck pain x 2 days with no fall or trauma. Aching pain, associated with spasm sensation, aggravated by turning the neck, no numbness or tingling, non radiating pain, no fever or chills, no rash, no night sweat, no other medical or psychological complaints. Past Medical History - Provider Review Nursing Documentation Reviewed: Yes - Infectious Disease Hx of Infectious Diseases: None - Tetanus Immunization Tetanus Immunization: Unknown - Past Medical History Past Medical History: No Previous - Cardiac Hx Cardiac Disorders: No - Pulmonary Hx Respiratory Disorders: No - Neurological Hx Neurological Disorder: No - HEENT Hx HEENT Disorder: No - Renal Hx Renal Disorder: No - Endocrine/Metabolic Hx Endocrine Disorders: No - Hematological/Oncological Hx Blood Disorders: No - Integumentary Hx Dermatological Disorder: No - Musculoskeletal/Rheumatological Hx Musculoskeletal Disorders: No Hx Falls: No - Gastrointestinal Hx Gastrointestinal Disorders: Yes Hx Gastrointestinal Ulcer: Yes - Genitourinary/Gynecological Hx Genitourinary Disorders: No - Psychiatric Hx Depression: No Hx Emotional Abuse: No Hx Physical Abuse: No Hx Substance Use: No - Past Surgical History Past Surgical History: No Previous - Suicidal Assessment Feels Threatened In Home Enviroment: No Family/Social History - Physician Review Nursing Documentation Reviewed: Yes Family/Social History: Unknown Family HX Smoking Status: Never Smoked Hx Alcohol Use: Yes Hx Substance Use: No Hx Substance Use Treatment: No Allergies/Home Meds Allergies/Adverse Reactions: Allergies No Known Allergies Allergy (Verified 10/28/18 11:27) Home Medications: Home Meds Medication Instructions Recorded Confirmed Methocarbamol [Robaxin] 1,000 mg PO DAILY 10/28/18 10/28/18 Review of Systems - Review of Systems Constitutional: absent: Fatigue, Fevers Eyes: absent: Vision Changes ENT: absent: Hearing Changes Respiratory: absent: SOB, Cough Cardiovascular: absent: Chest Pain Gastrointestinal: absent: Abdominal Pain Musculoskeletal: Neck Pain, Myalgias. absent: Arthralgias, Back Pain, Joint Swelling Skin: absent: Rash, Pruritis Neurological: absent: Headache Psychiatric: absent: Anxiety, Depression, Suicidal Ideation Physical Exam - Systems Exam Head: Present: Atraumatic, Normocephalic Pupils: Present: PERRL Extroacular Muscles: Present: EOMI Conjunctiva: Present: Normal Ears: Present: NORMAL TM, Normal Canal. No: Erythema Mouth: Present: Moist Mucous Membranes Pharnyx: No: ERYTHEMA, EXUDATE, TONSILS ENLARGED Nose (External): Present: Atraumatic. No: Abrasion, Contusion, Laceration, Lesions Nose (Internal): Present: Normal Inspection, No Active Bleeding. No: Rhinorrhea, Septal Hematoma, Epistaxis Neck: Present: Normal Range of Motion, Paraspinal Tenderness (Rt. trapezius muscle with spasm noted), Trachea Midline. No: Meningeal Signs, MIDLINE TENDERNESS, Lymphadenopathy Respiratory/Chest: Present: Clear to Auscultation, Good Air Exchange. No: Respiratory Distress, Accessory Muscle Use, Wheezes, Decreased Breath Sounds, Rales, Retracting, Rhonchi, Tachypneic, Tender to Palpation Cardiovascular: Present: Regular Rate and Rhythm, Normal S1, S2. No: Murmurs Abdomen: No: Tenderness, Distention, Peritoneal Signs, Rebound, Guarding Back: Present: Normal Inspection. No: CVA Tenderness, Midline Tenderness, Paraspinal Tenderness, Pain with Leg Raise, Decubitus Ulcer Upper Extremity: Present: Normal Inspection. No: Cyanosis, Edema Lower Extremity: Present: Normal Inspection. No: Edema Neurological: Present: GCS=15, CN II-XII Intact, Speech Normal, Motor Func Grossly Intact, Normal Cerebellar Funct, Gait Normal, Memory Normal Skin: Present: Warm, Dry, Normal Color. No: Rashes Lymphatic: No: Cervical Adenopathy Psychiatric: Present: Alert, Oriented x 3, Normal Insight, Normal Concentration Medical Decision Making ED Course and Treatment: 10/28/18 11:01 -toradol/valium/lidoderm -observe and reassess 10/28/18 13:21 -Pain improved, no focal neurological deficits, walking with normal gait and posture. Pt. request to be discharged home without further evaluation or any imaging. -Discharge home with naproxen, flexeril, lidoderm, heat compression, follow up with your own pmd and orthopedic within 2 days, return to the ER for any new or worsening signs or symptoms. - PA / [employer] / Resident Statement MD/DO has reviewed & agrees with the documentation as recorded. Disposition/Present on Arrival - Present on Arrival Any Indicators Present on Arrival: No History of DVT/PE: No History of Uncontrolled Diabetes: No Urinary Catheter: No History of Decub. Ulcer: No History Surgical Site Infection Following: None - Disposition Have Diagnosis and Disposition been Completed?: Yes Diagnosis: Trapezius muscle spasm Disposition: HOME/ ROUTINE Disposition Time: 12:44 Patient Plan: Discharge Patient Problems: Current Active Problems Problem Status Onset Trapezius muscle spasm Acute Condition: IMPROVED Additional Instructions: -Discharge home with naproxen, flexeril, lidoderm, heat compression, follow up with your own pmd and orthopedic within 2 days, return to the ER for any new or worsening signs or symptoms. Prescriptions: Cyclobenzaprine [Cyclobenzaprine HCl] 10 mg PO TID PRN #21 tab PRN Reason: Other Lidocaine 5% [Lidoderm] 1 patch TOP DAILY PRN #14 patch PRN Reason: Other Naproxen 500 mg PO BID PRN #20 tablet PRN Reason: Other Referrals: Db Copeland MD [Primary Care Provider] - Follow up with primary Sidra Rodríguez MD [Staff Provider] - Follow up with primary Forms: WORK NOTE
[2018-10-28 11:09] VITALS: BMI 44.1
[2018-10-28] MEDS ORDERED: Lidocaine 5% Patch TD STA (11:10)
[2018-10-28 11:27] VITALS: RESP 18; TEMP 98.8; O2SAT 95
[2018-10-28 13:16] VITALS: BP 110/74; PULSE 80
== END 2018-10-28 13:40 | disposition home or self-care (01) ==
LOC: ED 10:52
DX: M62.830 Muscle spasm of back (principal); E11.9 Type 2 diabetes mellitus without complications
CPT/HCPCS: 96372; 99283; J1885